=== PATIENT | male | born 1995 | race Caucasian/White ===

== ENCOUNTER 2021-04-25 19:18 | Emergency (ER) | payer OTHER ==
[~2021-04-25] VITALS: Ht 170.2 cm; Wt 90.9 kg
[2021-04-25] MEDS ORDERED: IBUPROFEN 800 MG TABLET PO ONE (20:15)
[2021-04-25] MEDS ORDERED: BACITRACIN 0.9 GM PACKET OINTMENT TP ONE (20:45)
[2021-04-25 21:33] VITALS: BP 135/75
== END 2021-04-25 21:35 | disposition home or self-care (01) ==
LOC: EMS 19:18
DX: S62.326A Displaced fracture of shaft of fifth metacarpal bone, right hand, initial encounter for closed fracture (principal); S01.111A Laceration without foreign body of right eyelid and periocular area, initial encounter; S60.511A Abrasion of right hand, initial encounter; Y04.0XXA Assault by unarmed brawl or fight, initial encounter; Y93.89 Activity, other specified; Y92.89 Other specified places as the place of occurrence of the external cause; Y99.8 Other external cause status
CPT/HCPCS: 99283